=== PATIENT | male | born 1970 | race Caucasian/White ===

== ENCOUNTER 2024-05-09 06:23 | Emergency (ER) | payer BC ==
[~2024-05-09] VITALS: Ht 167.6 cm; Wt 90.9 kg
[2024-05-09 06:39] VITALS: TEMP 98.6
[2024-05-09 07:03] LABS: COVID AG,FIA SOURCE NASAL SWAB
[2024-05-09 08:01] LABS: SARS-COV2 (COVID) ANTIGEN,FIA Negative (Negative)
[2024-05-09 08:02] LABS: INFLUENZA TYPE A NEGATIVE FOR TYPE A (NEGATIVE); INFLUENZA TYPE B NEGATIVE FOR TYPE B (NEGATIVE)
[2024-05-09] MEDS: CefTRIAXone 1 GM/DEXTROSE 50 ML IV ONE (08:02)
[2024-05-09] MEDS: KETOROLAC TROMETHAMINE 30 MG/ML VIAL IVP ONE (08:02)
[2024-05-09] MEDS: DEXAMETHASONE SOD PHOS 4 MG/ML 5 ML VIAL IVP ONE (08:03)
[2024-05-09] MEDS ORDERED: IBUP-1492 PO (08:07)
[2024-05-09] MEDS ORDERED: AMOX-457 PO (08:07)
[2024-05-09 09:43] VITALS: BP 125/79; PULSE 85; RESP 16; O2SAT 97
== END 2024-05-09 09:44 | disposition home or self-care (01) ==
LOC: EMS 06:24
DX: J36 Peritonsillar abscess (principal); Z98.890 Other specified postprocedural states; Z20.822 Contact with and (suspected) exposure to COVID-19
CPT/HCPCS: 99284; 96365; 96375; 87426; 87804; J1885; J0696; J1100

== ENCOUNTER 2024-05-10 08:03 | Emergency (ER) | payer BC ==
[~2024-05-10] VITALS: Ht 167.6 cm; Wt 90.9 kg
[~2024-05-10 08:03] MED LIST: AMOX-457 PO; IBUP-1492 PO
[2024-05-10 08:04] VITALS: TEMP 98.6
[2024-05-10] MEDS ORDERED: 0.9% SODIUM CHLORIDE 10 ML SYRINGE IVP PRN (08:15)
[2024-05-10 08:45] LABS: BASOPHILS % (AUTO) 0.3 % (0.0-2.0); EOSINOPHILS % (AUTO) 0.4 % (1.0-6.0); HEMATOCRIT 44.9 % (41-53); HEMOGLOBIN 15.1 g/dL (13.5-17.5); LYMPHOCYTES # (AUTO) 1.4 K/uL (1.0-4.8); LYMPHOCYTES % (AUTO) 9.7 % (22.0-44.0); MEAN CORPUSCULAR HEMOGLOBIN 29.8 pg (26.0-34.0); MEAN CORPUSCULAR HGB CONC 33.6 G/dL (31.0-37.0); MEAN CORPUSCULAR VOLUME 89 fL (80-100); MONOCYTES # (AUTO) 0.9 K/uL (0.1-1.0); MONOCYTES % (AUTO) 6.4 % (2.0-9.0); NEUTROPHILS # (AUTO) 12.4 K/uL (1.8-7.7); NEUTROPHILS % (AUTO) 83.2 % (40.0-70.0); PLATELET COUNT (AUTO) 209 K/uL (150-450); RED BLOOD CELL COUNT(AUTO) 5.05 MIL/uL (4.50-5.90); RED CELL DISTRIBUTION WIDTH 13.7 % (11.5-14.5); WHITE BLOOD COUNT (AUTO) 14.8 K/uL (4.5-11.0)
[2024-05-10] MEDS: MethylPREDNISolone SOD SUCC 125 MG/2 ML VIAL IVP ONE (08:49)
[2024-05-10] MEDS: SODIUM CHLORIDE 0.9% 1,000 ML IV ONE (08:49)
[2024-05-10] MEDS ORDERED: SODIUM CHLORIDE 0.9% 100 ML ONE (09:07)
[2024-05-10] MEDS ORDERED: IOHEXOL 350 MG/ML 100 ML VIAL ONE (09:07)
[2024-05-10 09:16] LABS: ANION GAP 7 mmol/L (8-16); CALCIUM, TOTAL 9.2 mg/dL (8.8-10.5); CARBON DIOXIDE 31 mmol/L (22-29); CHLORIDE 105 mmol/L (98-107); CREATININE 1.09 mg/dL (0.60-1.30); GLOMERULAR FILTR. RATE CALC > 60 mL/min (>60); GLUCOSE,RANDOM 156 mg/dL (70-110); POTASSIUM 3.9 mmol/L (3.5-5.1); SODIUM SERUM 143 mmol/L (136-145); UREA NITROGEN, BLOOD 11 mg/dL (7-18)
[2024-05-10 09:39] LABS: LACTIC ACID 2.1 mmol/L (0.4-2.0)
[2024-05-10] MEDS: PIPERACILLIN SODIUM/TAZOBACTAM 4.5 GM in DEXTROSE 5%-WATER 100 ML IV ONE (09:53)
[2024-05-10 11:27] VITALS: BP 157/87; PULSE 75; RESP 18; O2SAT 95
== END 2024-05-10 12:34 | disposition home or self-care (01) ==
LOC: EMS 08:03
DX: J36 Peritonsillar abscess (principal); Z98.890 Other specified postprocedural states; Z91.012 Allergy to eggs; Z91.018 Allergy to other foods
CPT/HCPCS: 99285; 96365; 70491; 96361; 96375; 80048; 83605; 85025; 87040; 36415; J2919; Q9967; J2543; J7060; J7030; J7050